=== PATIENT | female | born 1985 | race African-American/Black ===

== ENCOUNTER → 2020-08-14 | Outpatient (CLI) | payer OTHER, MEDICAID ==
[~2020-08-14] MED LIST: ALPR0.5T7 PO; CARV3.122 PO; FLUO20CA23 PO; INSU100C5 SQ; INSU100V8 SQ; LISI5TAB7 PO; PARI1CAP PO; SEVE800T7 PO
[2020-08-14 10:49] LABS: BASOPHILS % (AUTO) 1 % (0-1); EOSINOPHILS % (AUTO) 4 % (1-7); LYMPHOCYTES % (AUTO) 25 % (22-44); MEAN CORPUSCULAR HEMOGLOBIN 31.6 pg (27.0-34.8); MEAN CORPUSCULAR HGB CONC 33.3 g/dL (32.4-35.8); MONOCYTES % (AUTO) 5 % (2-9); NEUTROPHILS % (AUTO) 64 % (42-75); PLATELET COUNT 215 x10^3/uL (130-400); RED CELL DISTRIBUTION WIDTH 16.2 % (9.6-15.2)
[2020-08-14 10:54] LABS: MD NO
[2020-08-14 11:02] LABS: ALANINE AMINOTRANSFERASE 31 U/L (12-78); ALBUMIN 3.9 g/dL (3.4-5.0); ANION GAP 3 mmol/L (5-15); CALCIUM 9.2 mg/dL (8.5-10.1); CHLORIDE 101 mmol/L (98-107); CREATININE 4.74 mg/dL (0.55-1.02); INTERNATIONAL NORMALIZED RATIO 0.94 (0.93-1.1); PROTHROMBIN TIME 10.1 Seconds (9.6-11.5)
[2020-08-14 11:04] LABS: ALKALINE PHOSPHATASE 93 U/L (45-117); BILIRUBIN,TOTAL 0.3 mg/dL (0.2-1.0); TOTAL PROTEIN 7.9 g/dL (6.4-8.2)
== END | disposition home or self-care (01) ==
LOC: STAR 09:48
PROVIDERS: ATTEND Surgery
DX: Z01.812 Encounter for preprocedural laboratory examination (principal); Z20.822 Contact with and (suspected) exposure to COVID-19; N18.6 End stage renal disease
CPT/HCPCS: 36415; 80053; 85025; 85610; 85730; 93005; U0003; U0005

== ENCOUNTER 2020-08-20 13:36 | Day surgery (SDC) | payer MEDICARE, MEDICAID ==
[~2020-08-20] VITALS: Ht 160 cm; Wt 57.0 kg
[~2020-08-20 13:36] MED LIST changes: +EPHEDRINE 50 MG/ML, 1ML IVPush PRN; +FENTANYL PF 100 MCG/2ML IV PRN; +HYDROmorphone 1 MG/ML, 1ML INJ IVPush PRN; +LABETALOL 5MG/ML, 20ML IV PRN; +ONDANSETRON 2MG/ML, 2ML IVPush PRN; +OXYcodone 5 MG/5 ML ORAL.SOL UDC PO PRN; +PROMETHAZINE 25 MG/ML, 1ML IVPush PRN; +hydrALAzine 20 MG/ML, 1ML IV PRN
[2020-08-20 14:10] VITALS: BP 176/90
[2020-08-20] MEDS ORDERED: CHLORHEXIDINE 15 ML UDC PO ONE (14:30)
[2020-08-20] MEDS ORDERED: SODIUM CHLORIDE 0.9% 1,000 ML IV SCH (14:30)
[2020-08-20] MEDS ORDERED: ACETAMINOPHEN 500 MG TABLET PO ONE (14:30)
[2020-08-20 14:55] LABS: ANION GAP 8 mmol/L (5-15); CALCIUM 8.8 mg/dL (8.5-10.1); CHLORIDE 101 mmol/L (98-107)
[2020-08-20 14:56] LABS: CREATININE 6.29 mg/dL (0.55-1.02)
[2020-08-20] MEDS ORDERED: EPINEPHRINE 1 MG/ML, 1ML ONE (15:18)
[2020-08-20] MEDS ORDERED: LIDOCAINE 1%, 20ML ONE (15:18)
[2020-08-20] MEDS ORDERED: PROTAMINE SULFATE 10 MG/ML, 25ML ONE (15:18)
[2020-08-20] MEDS ORDERED: THROMBIN 20,000 UNIT VIAL TP ONE (15:18)
[2020-08-20] MEDS ORDERED: PAPAVERINE 30 MG/ML, 2ML ONE (15:18)
[2020-08-20] MEDS ORDERED: HEPARIN 1,000 UNITS/ML, 10ML ONE (15:18)
[2020-08-20] MEDS ORDERED: BUPIVACAINE/PF 0.25% ONE (15:18)
[2020-08-20] MEDS ORDERED: CEFAZOLIN 1,000 MG ONE (16:00)
[2020-08-20] MEDS ORDERED: FENTANYL PF 100 MCG/2ML ONE ×2 (16:01→16:28)
[2020-08-20] MEDS ORDERED: MIDAZOLAM 1 MG/ML, 2ML ONE (16:01)
[2020-08-20] MEDS ORDERED: ROCURONIUM 10MG/ML,5ML ONE (16:17)
[2020-08-20] MEDS ORDERED: PROPOFOL 10 MG/ML, 20ML ONE (16:18)
[2020-08-20] MEDS ORDERED: DEXAMETHASONE 4 MG/ML, 1ML ONE ×2 (16:19→16:28)
[2020-08-20] MEDS ORDERED: ONDANSETRON 2MG/ML, 2ML ONE ×2 (16:28)
[2020-08-20] MEDS ORDERED: NEOSTIGMINE 1 MG/ML, 10ML ONE (17:12)
[2020-08-20] MEDS ORDERED: GLYCOPYRROLATE 0.2MG/1ML, 5ML ONE (17:13)
[2020-08-20] MEDS ORDERED: EPHEDRINE 50 MG/ML, 1ML ONE (17:14)
[2020-08-20] MEDS ORDERED: HYDR-2214 PO (18:04)
[2020-08-20] MEDS ORDERED: LABETALOL 5MG/ML, 20ML ONE (19:21)
== END 2020-08-20 21:05 | disposition home or self-care (01) ==
LOC: OR 13:36
PROVIDERS: ATTEND Surgery
DX: E11.22 Type 2 diabetes mellitus with diabetic chronic kidney disease (principal); I12.0 Hypertensive chronic kidney disease with stage 5 chronic kidney disease or end stage renal disease; N18.6 End stage renal disease; D64.9 Anemia, unspecified; F41.9 Anxiety disorder, unspecified; F32.9 Major depressive disorder, single episode, unspecified; Z79.4 Long term (current) use of insulin; Z79.899 Other long term (current) drug therapy; Z88.8 Allergy status to other drugs, medicaments and biological substances; Z91.018 Allergy to other foods; Z98.890 Other specified postprocedural states
CPT/HCPCS: 36832; 80048; 82962; J0690; J1100; J1644; J2250; J2405; J2704; J2710; J2720; J3010; J0171; J2440